=== PATIENT | female | born 1975 | race Caucasian/White ===

== ENCOUNTER 2016-09-05 12:44 | Emergency (ER) | payer OTHER ==
[2016-09-05] MEDS ORDERED: IBUPROFEN 600 MG TABLET PO ONE (13:06)
--- NOTE | 2016-09-05 13:07 | ER Document Report ---
ED Medical Screen (RME) - General Chief Complaint: Foot Injury Stated Complaint: ANKLE INJURY Time Seen by Provider: 09/05/16 13:06 Mode of Arrival: Wheelchair Information source: Patient Notes: This is a 41-year-old female that presents to the emergency room with predominant left ankle and foot swelling and pain after twisting her ankle. Patient does states she has got some right foot swelling and tenderness but not as bad as the left. She tripped at home TRAVEL OUTSIDE OF THE [place] IN LAST 30 DAYS: No - Related Data Allergies/Adverse Reactions: codeine phosphate [From Tylenol-Codeine] Allergy (Severe, Verified 08/11/15 11: 12) N&V promethazine HCl [From Phenergan] Allergy (Severe, Verified 08/11/15 11:12) Nausea & Vomiting acetaminophen [From Percocet] Adverse Reaction (Severe, Verified 08/11/15 11:12) N&V oxycodone HCl [From Percocet] Adverse Reaction (Verified 04/12/15 20:04) Past Medical History - Past Medical History Cardiac Medical History: Denies: Hx Atrial Fibrillation, Hx Congestive Heart Failure, Hx Coronary Artery Disease, Hx Heart Attack, Hx Hypercholesterolemia, Hx Hypertension, Hx Peripheral Vascular Disease, Hx Pulmonary Embolism, Hx Heart Murmur Pulmonary Medical History: Denies: Hx Asthma, Hx Bronchitis, Hx COPD, Hx Pneumonia, Hx Respiratory Failure, Hx Sleep Apnea, Hx Tuberculosis Neurological Medical History: Denies: Hx Cerebrovascular Accident, Hx Seizures Endocrine Medical History: Denies: Hx Graves' Disease, Hx Hyperthyroidism, Hx Hypothyroidism Renal/ Medical History: Denies: Hx End Stage Renal Disease, Hx Kidney Stones, Hx Ovarian Cysts, Hx Peritoneal Dialysis, Hx Pelvic Inflammatory Disease Malignancy Medical History: Denies: Hx Breast Cancer, Hx Cervical Cancer, Hx Leukemia, Hx Lung Cancer, Hx Ovarian Cancer GI Medical History: Denies: Hx Crohn's Disease, Hx Gastroesophageal Reflux Disease, Hx Hiatal Hernia, Hx Irritable Bowel, Hx Liver Failure, Hx Ulcer Musculoskeltal Medical History: Denies Hx Arthritis, Denies Hx Fibromyalgia, Denies Hx Multiple Sclerosis, Denies Hx Muscular Dystrophy Psychiatric Medical History: Denies: Hx Bipolar Disorder, Hx Dementia, Hx Depression, Hx Post Traumatic Stress Disorder, Hx Schizophrenia Traumatic Medical History: Denies: Hx Fractures Infectious Medical History: Denies: Hx HIV Past Surgical History: Reports: Hx Breast Surgery - reduction 1998, Hx Cholecystectomy, Hx Herniorrhaphy, Hx Tonsillectomy, Hx Tubal Ligation. Denies : Hx Appendectomy, Hx Bowel Surgery, Hx Section, Hx Colostomy, Hx Coronary Artery Bypass Graft, Hx Gastric Bypass Surgery, Hx Hysterectomy, Hx Mastectomy - BREAST REDUCTION 1997, Hx Pacemaker - Immunizations Hx Diphtheria, Pertussis, Tetanus Vaccination: Yes Physical Exam - Vital signs Vitals: Temp Pulse Resp BP Pulse Ox 98.4 F 121 H 18 148/100 H 97 09/05/16 13:00 09/05/16 13:00 09/05/16 13:00 09/05/16 13:00 09/05/16 13:00 Course - Vital Signs Vital signs: Temp Pulse Resp BP Pulse Ox 98.4 F 121 H 18 148/100 H 97 09/05/16 13:00 09/05/16 13:00 09/05/16 13:00 09/05/16 13:00 09/05/16 13:00
--- NOTE | 2016-09-05 13:43 | RADIOLOGY REPORT (SQ) ---
EXAM DESCRIPTION: ANKLE LEFT COMPLETE; FOOT LEFT COMPLETE COMPLETED DATE/TIME: 09/05/2016 1:32 pm REASON FOR STUDY: injury COMPARISON: None. NUMBER OF VIEWS: Three views. TECHNIQUE: AP, lateral, and oblique radiographic images acquired of the left ankle and left foot. LIMITATIONS: None. FINDINGS: MINERALIZATION: Normal. BONES: Corticated bone fragments lateral to the talus suggestive of chronic avulsion type injury. Wi th additional apparent acute fracture fragments involving the lateral aspect of the anterior calcanea l process as well as off of the tip of the lateral malleolus. JOINTS: No effusions. SOFT TISSUES: Lateral soft tissue swelling. OTHER: No other significant finding. IMPRESSION: APPARENT ACUTE ON CHRONIC AVULSION TYPE INJURY LATERAL ANKLE ABOVE. TECHNICAL DOCUMENTATION: JOB ID: [id number] [employer]- All Rights Reserved
--- NOTE | 2016-09-05 13:43 | RADIOLOGY REPORT (SQ) ---
EXAM DESCRIPTION: ANKLE LEFT COMPLETE; FOOT LEFT COMPLETE COMPLETED DATE/TIME: 09/05/2016 1:32 pm REASON FOR STUDY: injury COMPARISON: None. NUMBER OF VIEWS: Three views. TECHNIQUE: AP, lateral, and oblique radiographic images acquired of the left ankle and left foot. LIMITATIONS: None. FINDINGS: MINERALIZATION: Normal. BONES: Corticated bone fragments lateral to the talus suggestive of chronic avulsion type injury. Wi th additional apparent acute fracture fragments involving the lateral aspect of the anterior calcanea l process as well as off of the tip of the lateral malleolus. JOINTS: No effusions. SOFT TISSUES: Lateral soft tissue swelling. OTHER: No other significant finding. IMPRESSION: APPARENT ACUTE ON CHRONIC AVULSION TYPE INJURY LATERAL ANKLE ABOVE. TECHNICAL DOCUMENTATION: JOB ID: [id number] [employer]- All Rights Reserved
--- NOTE | 2016-09-05 13:44 | RADIOLOGY REPORT (SQ) ---
EXAM DESCRIPTION: FOOT RIGHT COMPLETE COMPLETED DATE/TIME: 09/05/2016 1:32 pm REASON FOR STUDY: injury COMPARISON: 07/26/2014 NUMBER OF VIEWS: Three views. TECHNIQUE: AP, lateral and oblique radiographic images acquired of the right foot. LIMITATIONS: None. FINDINGS: MINERALIZATION: Normal. BONES: No acute fracture or dislocation. No worrisome bone lesions. Stable degree of plantar calcan eal spurring. JOINTS: No effusions. SOFT TISSUES: No soft tissue swelling. No foreign body. OTHER: No other significant finding. IMPRESSION: NO RADIOGRAPHIC EVIDENCE OF ACUTE INJURY. NO SIGNIFICANT CHANGE FROM PRIOR STUDY. TECHNICAL DOCUMENTATION: JOB ID: [id number] [employer]- All Rights Reserved
--- NOTE | 2016-09-05 13:51 | ER Document Report ---
HPI - HPI Patient complains to provider of: stumbled on porch steps Onset: Just prior to arrival Onset/Duration: Sudden Quality of pain: Throbbing Pain Level: 5 Context: 41-year-old female stumbled on 4 steps injuring both feet and ankles at 12:30. Previous ankle injury at age 18 but she does not remember which one it was. The left hurts the most. She is able to bear weight on the right foot. Associated Symptoms: None Exacerbated by: Walking Relieved by: Denies Similar symptoms previously: Yes Recently seen / treated by doctor: No - ROS ROS below otherwise negative: Yes Systems Reviewed and Negative: Yes All other systems reviewed and negative - REPRODUCTIVE Reproductive: DENIES: : - DERM Skin Color: Normal Past Medical History - General Information source: Patient - Social History Smoking Status: Never Smoker Frequency of alcohol use: None Drug Abuse: None Lives with: Spouse/Significant other Family History: Reviewed & Not Pertinent - Medical History Medical History: Negative Past Surgical History: Reports: Hx Breast Surgery - reduction 1999, Hx Cholecystectomy, Hx Herniorrhaphy, Hx Tonsillectomy, Hx Tubal Ligation - Immunizations Hx Diphtheria, Pertussis, Tetanus Vaccination: Yes Hx Pneumococcal Vaccination: 01/14/06 Vertical Provider Document - CONSTITUTIONAL Agree With Documented VS: Yes Exam Limitations: No Limitations General Appearance: No Apparent Distress - INFECTION CONTROL TRAVEL OUTSIDE OF THE [place] IN LAST 30 DAYS: No - HEENT HEENT: Atraumatic, Normocephalic - NECK Neck: Supple - RESPIRATORY O2 Sat by Pulse Oximetry: 97 - MUSCULOSKELETAL/EXTREMETIES Musculoskeletal/Extremeties: Tender - Left lateral malleolus and lateral proximal foot. 2+ DP bilateral. Left knee full range of motion nontender. Neurovascular intact distal to the ankle. Right knee full range of motion nontender. Right ankle and foot no swelling or bony tenderness. Bilateral heel squeeze negative., Edema, Eccymosis - NEURO Level of Consciousness: Awake, Alert, Appropriate Motor/Sensory: No Motor Deficit, No Sensory Deficit - DERM Integumentary: Warm, Dry Course - Re-evaluation Re-evalutation: 09/05/16 14:[address] Romano the radiologist who interpreted the images and he states that the impression for the left ankle and left foot are complete as reported which shows apparent acute on chronic avulsion type injury lateral ankle. I confirmed that there were no other positive findings and this included the left foot read. right foot is negative. left acutre fx frragments involing the lateral aspect of the anterior calcaneal process as well as off of the tip of the lateral malleolus 09/05/16 15:01 - Vital Signs Vital signs: Temp Pulse Resp BP Pulse Ox 98.4 F 121 H 18 148/100 H 97 09/05/16 13:00 09/05/16 13:00 09/05/16 13:00 09/05/16 13:00 09/05/16 13:00 Procedures - Immobilization Left Ankle Time completed: 15:35 Pre-Proc Neuro Vasc Exam: Normal Immobilizer type: Posterior ankle Performed by: PCT Post-Proc Neuro Vasc Exam: Normal Alignment checked and good: Yes Notes: 09/06/16 08:29 right ankle stirrup splint applied by PCt as well alignment. Neurovascular intact., Discharge - Discharge Clinical Impression: Right foot sprain Qualifiers: Encounter type: initial encounter Qualified Code(s): S93.601A - Unspecified sprain of right foot, initial encounter Closed left ankle fracture Qualifiers: Encounter type: initial encounter Qualified Code(s): S82.892A - Other fracture of left lower leg, initial encounter for closed fracture Avulsion fracture of calcaneus Qualifiers: Encounter type: initial encounter Fracture type: closed Fracture alignment: nondisplaced Laterality: left Condition: Good Disposition: HOME, SELF-CARE Instructions: Splint Precautions ([facility]), Anti-Inflammatory Medication ([facility]), Use of Crutches ([facility]), Fracture Calcaneus ([facility]), Avulsion Fracture of the Ankle ([facility]) Additional Instructions: non weight bearing call the orthopedic doctor in the morning for appointment this week keep the splint on and elevate the left foot to er any concerns Please complete the patient satisfaction survey if you get one, and return it.. If you do not receive a survey, then you can go to the [facility] website, [email or web address] and place your comments about your very good care. Thank you very much. It was a pleasure being your medical provider today. Prescriptions: Ibuprofen [Motrin 800 mg Tablet] 800 mg PO Q8HP PRN #30 tablet PRN Reason: Forms: Return to Work Referrals: CRISTINO POWELL MD [Primary Care Provider] - Follow up as needed PA ALFONSO MD [ACTIVE STAFF] - 09/06/16 (call tomorrow for appointment this week)
[2016-09-05 15:13] VITALS: BP 140/88
== END 2016-09-05 15:13 | disposition home or self-care (01) ==
LOC: ER 12:44
PROC: 2W3RX1Z Immobilization of Left Lower Leg using Splint (ICD-10-PCS; principal; 2016-09-05)
PROC: 2W3QX1Z Immobilization of Right Lower Leg using Splint (ICD-10-PCS; 2016-09-05)
DX: S93.601A Unspecified sprain of right foot, initial encounter (principal); S82.892A Other fracture of left lower leg, initial encounter for closed fracture; S92.002A Unspecified fracture of left calcaneus, initial encounter for closed fracture; W10.9XXA Fall (on) (from) unspecified stairs and steps, initial encounter; Z90.49 Acquired absence of other specified parts of digestive tract; Z98.51 Tubal ligation status
CPT/HCPCS: 99283

== ENCOUNTER → 2017-12-24 | Outpatient (CLI) | payer OTHER ==
[2017-12-24 12:08] LABS: A TYPE INFLUENZA AG NEGATIVE (NEGATIVE); B INFLUENZA AG NEGATIVE (NEGATIVE)
== END ==
LOC: OD 11:17
PROVIDERS: ATTEND Nurse Practitioner Family
DX: R50.9 Fever, unspecified (principal)
CPT/HCPCS: 87804

== ENCOUNTER → 2018-04-20 | Outpatient (CLI) | payer OTHER ==
--- NOTE | 2018-04-20 08:32 | WOMENS IMAGING REPORT ---
EXAM DESCRIPTION: BILAT SCREENING MAMMO W/CAD COMPLETED DATE/TIME: 04/20/2018 7:42 am REASON FOR STUDY: Z12.31 ROUTINE BILATERAL [id number] ENCNTR SCREEN MAMMOGRAM FOR MALIGNANT NE OPLASM OF [place] COMPARISON: None. TECHNIQUE: Standard craniocaudal and mediolateral oblique views of each breast recorded using [employer] l acquisition. LIMITATIONS: None. FINDINGS: RIGHT BREAST MASSES: No suspicious masses. CALCIFICATIONS: No new or suspicious calcifications. ARCHITECTURAL DISTORTION: None. DEVELOPING DENSITY: Central posterior 9 cm deep to the nipple seen on the MLO view only. ASYMMETRY: None noted. OTHER: No other significant findings. LEFT BREAST MASSES: No suspicious masses. CALCIFICATIONS: No new or suspicious calcifications. ARCHITECTURAL DISTORTION: None. DEVELOPING DENSITY: None. ASYMMETRY: None noted. OTHER: No other significant findings. Read with the assistance of CAD. .[facility] - R2 Cenova Version 1.3 .[facility] Imaging - R2 Cenova Version 1.3 .[facility] Imaging - R2 Cenova Version 2.4 .[facility] - R2 Cenova Version 2.4 .[facility] - R2 Personal [employer] Version 9.2 IMPRESSION: Developing density right breast. BREAST DENSITY: b. There are scattered areas of fibroglandular density. BIRAD: 0 Incomplete: Needs Additional Imaging Evaluation and/or prior Mammograms for Comparison. RECOMMENDATION: RECOMMENDED FOLLOW-UP: True lateral, exaggerated CC, cone compression views and pote ntial ultrasound of the right breast. The patient will be contacted for additional imaging. COMMENT: The patient has been notified of the results by letter per SA requirements. Additional no tification policies are in place for contacting patient with suspicious or incomplete findings. Quality ID #[id number]: The [employer] recommends an annual screening mammogram for women aged 40 years or over. This facility utilizes a reminder system to ensure that all patients receive reminder letters, and/or direct phone calls for appointments. This includes reminders for routine scr eening mammograms, diagnostic mammograms, or other Breast Imaging Interventions when appropriate. Th is patient will be placed in the appropriate reminder system. The [employer] (ACR) has developed recommendations for screening MRI of the breast s in certain patient populations, to be used in conjunction with mammography. Breast MRI surveillanc e may be appropriate for women with more than 20% lifetime risk of developing breast cancer as deter mined by genetic testing, significant family history of the disease, or history of mantle radiation f or Hodgkins Disease. ACR Practice Guidelines 2008. TECHNICAL DOCUMENTATION: FINDING NUMBER: (1) ASSESSMENT: (1) JOB ID: [id number] [employer]- All Rights Reserved Reading location - IP/workstation name: [email or web address]
== END ==
LOC: WI 07:01
PROVIDERS: ATTEND Physician Assistant
DX: Z12.31 Encounter for screening mammogram for malignant neoplasm of breast (principal); R92.2 Inconclusive mammogram
CPT/HCPCS: 77067

== ENCOUNTER → 2018-05-04 | Outpatient (CLI) | payer OTHER ==
--- NOTE | 2018-05-04 16:51 | WOMENS IMAGING REPORT ---
EXAM DESCRIPTION: RIGHT DIAGNOSTIC MAMMO W/CAD; U/S BREAST UNILAT LIMITED COMPLETED DATE/TIME: 05/04/2018 8:08 am; 05/04/2018 9:15 am REASON FOR STUDY: R92.2 INCONCLUSIVE MAMMOGRAM; RT BREAST R92.2 R92.2 INCONCLUSIVE MAMMOGRAM COMPARISON: 04/20/2018 TECHNIQUE: CONE COMPRESSION craniocaudal and mediolateral oblique images of the breast recorded with digital acquisition. Additional whole breast 90 mediolateral view and exaggerated craniocaudad view. Ultrasound of the right breast laterally was performed, 9 o'clock position about 10 to 15 cm from the nipple. LIMITATIONS: None. FINDINGS: BREAST LATERALITY: Right MASSES: No suspicious masses. CALCIFICATIONS: No new or suspicious calcifications. ARCHITECTURAL DISTORTION: None. DEVELOPING DENSITY: None. ASYMMETRY: None noted. OTHER: Postsurgical changes from breast reduction Read with the assistance of CAD. .[facility] - R2 Cenova Version 1.3 .[facility] Imaging - R2 Cenova Version 2.1 .[facility] Imaging - R2 Cenova Version 2.4 .[facility] - R2 Cenova Version 2.4 .[facility] - R2 [employer] Counter Person Version 9.2 Right breast ultrasound: Ultrasound of the lateral right breast was performed. No discrete cystic or solid lesions. No worri some acoustic absorption. No focal findings. IMPRESSION: No mammographic or sonographic evidence for malignancy right breast BREAST DENSITY: b. There are scattered areas of fibroglandular density. BIRAD: 1 Negative. RECOMMENDATION: RECOMMENDED FOLLOW UP: Please continue yearly bilateral mammographic screening in [facility] 2019 SPECIFIC INTERVENTION/IMAGING/CONSULTATION RECOMMENDED:No additional intervention/ imaging/consultati on needed at this time. COMMUNICATION:Patient notified by letter COMMENT: The patient has been notified of the results by letter per SA requirements. Additional no tification policies are in place for contacting patient with suspicious or incomplete findings. Quality ID #[id number]: The [employer] recommends an annual screening mammogram for women aged 40 years or over. This facility utilizes a reminder system to ensure that all patients receive reminder letters, and/or direct phone calls for appointments. This includes reminders for routine scr eening mammograms, diagnostic mammograms, or other Breast Imaging Interventions when appropriate. Th is patient will be placed in the appropriate reminder system. The [employer] (ACR) has developed recommendations for screening MRI of the breast s in certain patient populations, to be used in conjunction with mammography. Breast MRI surveillanc e may be appropriate for women with more than 20% lifetime risk of developing breast cancer as deter mined by genetic testing, significant family history of the disease, or history of mantle radiation f or Hodgkins Disease. ACR Practice Guidelines 2008. TECHNICAL DOCUMENTATION: FINDING NUMBER: (1) ASSESSMENT: (1) JOB ID: [id number] [employer]- All Rights Reserved Reading location - IP/workstation name: [email or web address]
--- NOTE | 2018-05-04 16:51 | WOMENS IMAGING REPORT ---
EXAM DESCRIPTION: RIGHT DIAGNOSTIC MAMMO W/CAD; U/S BREAST UNILAT LIMITED COMPLETED DATE/TIME: 05/04/2018 8:08 am; 05/04/2018 9:15 am REASON FOR STUDY: R92.2 INCONCLUSIVE MAMMOGRAM; RT BREAST R92.2 R92.2 INCONCLUSIVE MAMMOGRAM COMPARISON: 04/20/2018 TECHNIQUE: CONE COMPRESSION craniocaudal and mediolateral oblique images of the breast recorded with digital acquisition. Additional whole breast 90 mediolateral view and exaggerated craniocaudad view. Ultrasound of the right breast laterally was performed, 9 o'clock position about 10 to 15 cm from the nipple. LIMITATIONS: None. FINDINGS: BREAST LATERALITY: Right MASSES: No suspicious masses. CALCIFICATIONS: No new or suspicious calcifications. ARCHITECTURAL DISTORTION: None. DEVELOPING DENSITY: None. ASYMMETRY: None noted. OTHER: Postsurgical changes from breast reduction Read with the assistance of CAD. .[facility] Cenova Version 1.3 .[facility] Imaging - R2 Cenova Version 2.1 .[facility] Imaging - R2 Cenova Version 2.4 .[facility] - R2 Cenova Version 2.4 .[facility] - R2 Quality Assurance Nurse Version 9.2 Right breast ultrasound: Ultrasound of the lateral right breast was performed. No discrete cystic or solid lesions. No worri some acoustic absorption. No focal findings. IMPRESSION: No mammographic or sonographic evidence for malignancy right breast BREAST DENSITY: b. There are scattered areas of fibroglandular density. BIRAD: 1 Negative. RECOMMENDATION: RECOMMENDED FOLLOW UP: Please continue yearly bilateral mammographic screening in [facility] 2019 SPECIFIC INTERVENTION/IMAGING/CONSULTATION RECOMMENDED:No additional intervention/ imaging/consultati on needed at this time. COMMUNICATION:Patient notified by letter COMMENT: The patient has been notified of the results by letter per SA requirements. Additional no tification policies are in place for contacting patient with suspicious or incomplete findings. Quality ID #[id number]: The [employer] recommends an annual screening mammogram for women aged 40 years or over. This facility utilizes a reminder system to ensure that all patients receive reminder letters, and/or direct phone calls for appointments. This includes reminders for routine scr eening mammograms, diagnostic mammograms, or other Breast Imaging Interventions when appropriate. Th is patient will be placed in the appropriate reminder system. The [employer] (ACR) has developed recommendations for screening MRI of the breast s in certain patient populations, to be used in conjunction with mammography. Breast MRI surveillanc e may be appropriate for women with more than 20% lifetime risk of developing breast cancer as deter mined by genetic testing, significant family history of the disease, or history of mantle radiation f or Hodgkins Disease. ACR Practice Guidelines 2008. TECHNICAL DOCUMENTATION: FINDING NUMBER: (1) ASSESSMENT: (1) JOB ID: [id number] [employer]- All Rights Reserved Reading location - IP/workstation name: [email or web address]
== END ==
LOC: WI 07:41
PROVIDERS: ATTEND Physician Assistant
DX: R92.2 Inconclusive mammogram (principal)
CPT/HCPCS: 76642

== ENCOUNTER 2018-08-03 13:28 | Emergency (ER) | payer OTHER ==
--- NOTE | 2018-08-03 14:04 | ER Document Report ---
ED Medical Screen (RME) - General Chief Complaint: Palpitations Stated Complaint: COLD SWEATS TINGLING Time Seen by Provider: 08/03/18 13:52 Primary Care Provider: MARIO MAIER PA-C [Primary Care Provider] - Follow up as needed Mode of Arrival: Wheelchair Information source: Patient Notes: Patient presents to the emergency department with chest tightness palpitations. Patient reports that she took a diet pill phena-lean, yesterday and today now feels shaky palpitations and chest tightness. Drank a diet Pepsi and has only had approximately 500 sheridan today. Father has extensive cardiac disease. Patient reports she has lost 90 pounds over the past 10 months and was trying to get rid of the last few pounds. I have greeted and performed a rapid initial assessment of this patient. A comprehensive ED assessment and evaluation of the patient, analysis of test results and completion of the medical decision making process will be conducted by additional ED providers. Dictation of this chart was performed using voice recognition software; therefore, there may be some unintended grammatical errors. TRAVEL OUTSIDE OF THE [place] IN LAST 30 DAYS: No - Related Data Allergies/Adverse Reactions: codeine phosphate [From Tylenol-Codeine] Allergy (Severe, Verified 08/03/18 13:32) N&V promethazine HCl [From Phenergan] Allergy (Severe, Verified 08/03/18 13:32) Nausea & Vomiting acetaminophen [From Percocet] Adverse Reaction (Severe, Verified 08/03/18 13:32) N&V oxycodone HCl [From Percocet] Adverse Reaction (Verified 08/03/18 13:32) Past Medical History - Past Medical History Cardiac Medical History: Denies: Hx Atrial Fibrillation, Hx Congestive Heart Failure, Hx Coronary Artery Disease, Hx Heart Attack, Hx Hypercholesterolemia, Hx Hypertension, Hx Peripheral Vascular Disease, Hx Pulmonary Embolism, Hx Heart Murmur Pulmonary Medical History: Denies: Hx Asthma, Hx Bronchitis, Hx COPD, Hx Pneumonia, Hx Respiratory Failure, Hx Sleep Apnea, Hx Tuberculosis Neurological Medical History: Denies: Hx Cerebrovascular Accident, Hx Seizures Endocrine Medical History: Denies: Hx Graves' Disease, Hx Hyperthyroidism, Hx Hypothyroidism Renal/ Medical History: Denies: Hx End Stage Renal Disease, Hx Kidney Stones, Hx Ovarian Cysts, Hx Peritoneal Dialysis, Hx Pelvic Inflammatory Disease Malignancy Medical History: Denies: Hx Breast Cancer, Hx Cervical Cancer, Hx Leukemia, Hx Lung Cancer, Hx Ovarian Cancer GI Medical History: Denies: Hx Crohn's Disease, Hx Gastroesophageal Reflux Disease, Hx Hiatal Hernia, Hx Irritable Bowel, Hx Liver Failure, Hx Pancreatitis, Hx Ulcer Musculoskeltal Medical History: Denies Hx Arthritis, Denies Hx Fibromyalgia, Denies Hx Multiple Sclerosis, Denies Hx Muscular Dystrophy, Denies Hx Systemic Lupus Erythematosus Psychiatric Medical History: Denies: Hx Bipolar Disorder, Hx Dementia, Hx Depression, Hx Post Traumatic Stress Disorder, Hx Schizophrenia Traumatic Medical History: Denies: Hx Fractures Infectious Medical History: Denies: Hx HIV Past Surgical History: Reports: Hx Breast Surgery - reduction 1998, Hx Cholecystectomy, Hx Herniorrhaphy, Hx Tonsillectomy, Hx Tubal Ligation. Denies: Hx Appendectomy, Hx Bowel Surgery, Hx Section, Hx Colostomy, Hx Coronary Artery Bypass Graft, Hx Gastric Bypass Surgery, Hx Hysterectomy, Hx Mastectomy - BREAST REDUCTION 1997, Hx Pacemaker - Immunizations Hx Diphtheria, Pertussis, Tetanus Vaccination: Yes Physical Exam - Vital signs Vitals: Temp Pulse Resp BP Pulse Ox 98.3 F 119 H 18 135/76 H 100 08/03/18 13:44 08/03/18 13:44 08/03/18 13:44 08/03/18 13:44 08/03/18 13:44 Course - Vital Signs Vital signs: Temp Pulse Resp BP Pulse Ox 98.3 F 119 H 18 135/76 H 100 08/03/18 13:44 08/03/18 13:44 08/03/18 13:44 08/03/18 13:44 08/03/18 13:44 Doctor's Discharge - Discharge Referrals: MARIO MAIER PA-C [Primary Care Provider] - Follow up as needed
[2018-08-03 14:28] LABS: ABSOLUTE BASOPHILS # (AUTO) 0.1 10^3/uL (0.0-0.2); ABSOLUTE EOSINOPHILS # (AUTO) 0.1 10^3/uL (0.0-0.6); ABSOLUTE LYMPHOCYTES (AUTO) 2.3 10^3/uL (0.5-4.7); ABSOLUTE MONOCYTES (AUTO) 0.5 10^3/uL (0.1-1.4); ABSOLUTE NEUT (AUTO) 5.5 10^3/uL (1.7-8.2); BASOPHILS % (AUTO) 0.7 % (0-2); EOSINOPHILS % (AUTO) 1.1 % (0-6); HEMATOCRIT 44.2 % (36.0-47.0); HEMOGLOBIN 15.5 g/dL (12.0-15.5); LYMPHOCYTES % (AUTO) 27.3 % (13-45); MEAN CORPUSCULAR HEMOGLOBIN 29.8 pg (27.0-33.4); MEAN CORPUSCULAR HGB CONC 35.1 g/dL (32.0-36.0); MEAN CORPUSCULAR VOLUME 85 fl (80-97); MONOCYTES % (AUTO) 5.6 % (3-13); PLATELET COUNT 294 10^3/uL (150-450); RED CELL DISTRIBUTION WIDTH 13.2 % (11.5-14.0); SEGMENTED NEUTROPHILS % (AUTO) 65.3 % (42-78); TOTAL CELLS COUNTED % (AUTO) 100 %; WHITE BLOOD COUNT 8.4 10^3/uL (4.0-10.5)
[2018-08-03 14:43] LABS: APPEARANCE,URINE SLIGHTLY-CLOUDY; BILIRUBIN,URINE NEGATIVE (NEGATIVE); COLOR,URINE YELLOW; GLUCOSE, URINE NEGATIVE (NEGATIVE); KETONES,URINE TRACE mg/dL (NEGATIVE); LEUKOCYTE ESTERASE,URINE SMALL (NEGATIVE); NITRITE,URINE NEGATIVE (NEGATIVE); PROTEIN,URINE NEGATIVE (NEGATIVE); URINE SPECIFIC GRAVITY 1.009; UROBILINOGEN,URINE NEGATIVE mg/dL (<2.0)
--- NOTE | 2018-08-03 14:54 | RADIOLOGY REPORT (SQ) ---
EXAM DESCRIPTION: CHEST 2 VIEWS COMPLETED DATE/TIME: 08/03/2018 2:28 pm REASON FOR STUDY: chest tightness COMPARISON: 01/21/2016, 08/13/2015 EXAM PARAMETERS: NUMBER OF VIEWS: two views TECHNIQUE: Digital Frontal and Lateral radiographic views of the chest acquired. RADIATION DOSE: NA LIMITATIONS: none FINDINGS: LUNGS AND PLEURA: No opacities, masses or pneumothorax. No pleural effusion. MEDIASTINUM AND HILAR STRUCTURES: No masses or contour abnormalities. HEART AND VASCULAR STRUCTURES: Heart normal size. No evidence for failure. BONES: No acute findings. HARDWARE: None in the chest. OTHER: No other significant finding. IMPRESSION: NO ACUTE RADIOGRAPHIC FINDING IN THE CHEST. TECHNICAL DOCUMENTATION: JOB ID: [id number] [employer]- All Rights Reserved Reading location - IP/workstation name: [email or web address]
[2018-08-03 14:56] LABS: ALANINE AMINOTRANSFERASE 25 U/L (9-52); ALBUMIN 5.1 g/dL (3.5-5.0); ALKALINE PHOSPHATASE 71 U/L (38-126); ANION GAP 17 (5-19); ASPARTATE AMINO TRANSFERASE 20 U/L (14-36); BILIRUBIN,DIRECT 0.3 mg/dL (0.0-0.4); BILIRUBIN,TOTAL 1.1 mg/dL (0.2-1.3); BLOOD UREA NITROGEN 12 mg/dL (7-20); CALCIUM 10.9 mg/dL (8.4-10.2); CARBON DIOXIDE 22 mmol/L (22-30); CHLORIDE 100 mmol/L (98-107); CREATINE KINASE 20 U/L (30-135); GLUCOSE 141 mg/dL (75-110); POTASSIUM 3.9 mmol/L (3.6-5.0); SODIUM 139.4 mmol/L (137-145)
[2018-08-03 14:58] LABS: TOTAL PROTEIN 7.9 g/dL (6.3-8.2)
--- NOTE | 2018-08-03 16:47 | ER Document Report ---
ED General - General Chief Complaint: Palpitations Stated Complaint: COLD SWEATS TINGLING Time Seen by Provider: 08/03/18 13:52 Primary Care Provider: MARIO MAIER PA-C [Primary Care Provider] - Follow up in 1 week Mode of Arrival: Wheelchair Information source: Patient Notes: Patient presents to the emergency department with chest tightness palpitations. Patient reports that she took a diet pill phena-lean, yesterday and today now feels shaky palpitations and chest tightness. Drank a diet Pepsi and has only had approximately 500 sheridan today. Father has extensive cardiac disease. Patient reports she has lost 90 pounds over the past 10 months and was trying to get rid of the last few pounds. no other c/o such as fever/vomiting/diarrhea. No complaints of shortness of breath. No complaintes of pain with void. TRAVEL OUTSIDE OF THE [place] IN LAST 30 DAYS: No - HPI Onset: Just prior to arrival Onset/Duration: Sudden Quality of pain: No pain Pain Level: Denies Associated symptoms: None Exacerbated by: Denies Relieved by: Denies Similar symptoms previously: No Recently seen / treated by doctor: No - Related Data Allergies/Adverse Reactions: codeine phosphate [From Tylenol-Codeine] Allergy (Severe, Verified 08/03/18 13:32) N&V promethazine HCl [From Phenergan] Allergy (Severe, Verified 08/03/18 13:32) Nausea & Vomiting acetaminophen [From Percocet] Adverse Reaction (Severe, Verified 08/03/18 13:32) N&V oxycodone HCl [From Percocet] Adverse Reaction (Verified 08/03/18 13:32) Past Medical History - General Information source: Patient - Social History Smoking Status: Unknown if Ever Smoked Chew tobacco use (# tins/day): No Frequency of alcohol use: None Drug Abuse: None Lives with: Family Family History: Reviewed & Not Pertinent Patient has suicidal ideation: No Patient has homicidal ideation: No - Past Medical History Cardiac Medical History: Denies: Hx Atrial Fibrillation, Hx Congestive Heart Failure, Hx Coronary Artery Disease, Hx Heart Attack, Hx Hypercholesterolemia, Hx Hypertension, Hx Peripheral Vascular Disease, Hx Pulmonary Embolism, Hx Heart Murmur Pulmonary Medical History: Denies: Hx Asthma, Hx Bronchitis, Hx COPD, Hx Pneumonia, Hx Respiratory Failure, Hx Sleep Apnea, Hx Tuberculosis Neurological Medical History: Denies: Hx Cerebrovascular Accident, Hx Seizures Endocrine Medical History: Denies: Hx Graves' Disease, Hx Hyperthyroidism, Hx Hypothyroidism Renal/ Medical History: Denies: Hx End Stage Renal Disease, Hx Kidney Stones, Hx Ovarian Cysts, Hx Peritoneal Dialysis, Hx Pelvic Inflammatory Disease Malignancy Medical History: Denies: Hx Breast Cancer, Hx Cervical Cancer, Hx Leukemia, Hx Lung Cancer, Hx Ovarian Cancer GI Medical History: Denies: Hx Crohn's Disease, Hx Gastroesophageal Reflux Disease, Hx Hiatal Hernia, Hx Irritable Bowel, Hx Liver Failure, Hx Pancreatitis, Hx Ulcer Musculoskeletal Medical History: Denies Hx Arthritis, Denies Hx Fibromyalgia, Denies Hx Multiple Sclerosis, Denies Hx Muscular Dystrophy, Denies Hx Systemic Lupus Erythematosus Psychiatric Medical History: Denies: Hx Bipolar Disorder, Hx Dementia, Hx Depression, Hx Post Traumatic Stress Disorder, Hx Schizophrenia Traumatic Medical History: Denies: Hx Fractures Infectious Medical History: Denies: Hx HIV Past Surgical History: Reports: Hx Breast Surgery - reduction 1998, Hx Cholecystectomy, Hx Herniorrhaphy, Hx Tonsillectomy, Hx Tubal Ligation. Denies: Hx Appendectomy, Hx Bowel Surgery, Hx Section, Hx Colostomy, Hx Coronary Artery Bypass Graft, Hx Gastric Bypass Surgery, Hx Hysterectomy, Hx Mastectomy - BREAST REDUCTION 1997, Hx Pacemaker - Immunizations Hx Diphtheria, Pertussis, Tetanus Vaccination: Yes Hx Pneumococcal Vaccination: 01/14/06 Review of Systems - Review of Systems Notes: Review HPI for review of systems., All other systems negative Physical Exam - Vital signs Vitals: Temp Pulse Resp BP Pulse Ox 98.3 F 119 H 18 135/76 H 100 08/03/18 13:44 08/03/18 13:44 08/03/18 13:44 08/03/18 13:44 08/03/18 13:44 - General General appearance: Appears well, Alert, Anxious In distress: None - HEENT Head: Normocephalic Eyes: Normal Conjunctiva: Normal Extraocular movements intact: Yes Neck: Normal, Supple - Respiratory Respiratory status: No respiratory distress Chest status: Nontender Breath sounds: Normal Chest palpation: Normal - Cardiovascular Rhythm: Regular Heart sounds: Normal auscultation Murmur: No - Abdominal Inspection: Normal Distension: No distension Tenderness: Nontender - Extremities General upper extremity: Normal ROM General lower extremity: Normal ROM - Neurological Neuro grossly intact: Yes Cognition: Normal Orientation: AAOx4 Yina Coma Scale Eye Opening: Spontaneous [place] Coma Scale Verbal: Oriented Yina Coma Scale Motor: Obeys Commands [place] Coma Scale Total: 15 Speech: Normal Cranial nerves: Normal Cerebellar coordination: Normal - Psychological Associated symptoms: Normal affect, Normal mood - Skin Skin Temperature: Warm Skin Moisture: Dry Skin Color: Normal Course - Re-evaluation Re-evalutation: 08/03/18 Labs unremarkable. Negative troponin. Chest x-ray negative I was called to the patient's room and she reports she feels much better ready to go home. She reports she will never take that diet pill again EKG is reviewed and interpreted by me. EKG shows sinus tachy No change from previous EKG. No ST segment elevation or depression. No ischemic T wave inversions. GA interval, QRS duration, QT intervals are within normal range. The patient has atypical chest pain. The patient's chest pain is not suggestive of pulmonary embolus, cardiac ischemia, aortic dissection or other serious etiology. Given the extremely low risk for these diagnosis, further testing and evaluation for these possibilities does not appear to be indicated at this time. The patient has been instructed to return if the symptoms worsen or change in any way. Patient was instructed by attention to her symptoms do not take diet pills follow-up with her primary care provider she verbalized understanding to all instructions. Dictation of this chart was performed using voice recognition software; theref ore, there may be some unintended grammatical errors. 08/03/18 20:03 08/03/18 20:05 08/03/18 20:07 - Vital Signs Vital signs: Temp Pulse Resp BP Pulse Ox 97.8 F 90 16 119/75 100 08/03/18 16:55 08/03/18 16:55 08/03/18 16:55 08/03/18 16:55 08/03/18 16:55 - Laboratory Result Diagrams: 08/03/18 14:10 08/03/18 14:10 Laboratory results interpreted by me: 08/03/18 08/03/18 14:10 14:10 Glucose 141 H Calcium 10.9 H Creatine Kinase 20 L Albumin 5.1 H Urine Ketones TRACE H Urine Blood MODERATE H Ur Leukocyte Esterase SMALL H - Diagnostic Test Radiology reviewed: Image reviewed, Reports reviewed - EXAM DESCRIPTION: CHEST 2 VIEWS COMPLETED DATE/TIME: 08/03/2018 2:28 pm REASON FOR STUDY: chest tightness COMPARISON: 01/21/2016, 08/13/2015 EXAM PARAMETERS: NUMBER OF VIEWS: two views TECHNIQUE: Digital Frontal and Lateral radiographic views of the chest acquired. RADIATION DOSE: NA LIMITATIONS: none FINDINGS: LUNGS AND PLEURA: No opacities, masses or pneumothorax. No pleural effusion. MEDIASTINUM AND HILAR STRUCTURES: No masses or contour abnormalities. HEART AND VASCULAR STRUCTURES: Heart normal size. No evidence for failure. BONES: No acute findings. HARDWARE: None in the chest. OTHER: No other significant finding. IMPRESSION: NO ACUTE RADIOGRAPHIC FINDING IN THE CHEST. TECHNICAL DOCUMENTATION: JOB ID: [id number] [employer]- All Rights Reserved Discharge - Discharge Clinical Impression: Palpitations Condition: Stable Disposition: HOME, SELF-CARE Instructions: Palpitations (Irregular or Rapid Heartrate) ([facility]) Additional Instructions: *You have been evaluated for palpitations *Discontinue your diet medication *Follow up with a primary care provider within one week for recheck *Return to ED for worsening condition, changes, needs, concerns, return of palpi tations * Monitor your blood pressure. Your blood pressure was elevated today. This may be because you were anxious, in pain or because you need medication. It is important to follow up with your primary care provider for full evaluation. Forms: Elevated Blood Pressure Referrals: MARIO MAIER PA-C [Primary Care Provider] - Follow up in 1 week
[2018-08-03 16:56] VITALS: BP 119/75
--- NOTE | 2018-08-03 19:36 | EKG REPORT ---
SEVERITY:- OTHERWISE NORMAL ECG - SINUS TACHYCARDIA : Confirmed by: Ronda Avila MD 03-Aug-2018 19:35:16
== END 2018-08-03 16:56 | disposition home or self-care (01) ==
LOC: ER 13:28
DX: R00.2 Palpitations (principal); R07.89 Other chest pain; Z88.5 Allergy status to narcotic agent; Z88.8 Allergy status to other drugs, medicaments and biological substances; Z82.49 Family history of ischemic heart disease and other diseases of the circulatory system
CPT/HCPCS: 36415; 71046; 80053; 81001; 81025; 82550; 84484; 85025; 93005; 93010; 99285

== ENCOUNTER → 2019-04-24 | Outpatient (CLI) | payer OTHER ==
--- NOTE | 2019-04-24 17:52 | WOMENS IMAGING REPORT ---
EXAM DESCRIPTION: BILAT SCREENING MAMMO W/CAD COMPLETED DATE/TIME: 04/24/2019 7:20 am REASON FOR STUDY: ROUTINE [id number] [id number] SCREEN MAMMOGRAM FOR MALIGNANT NEOPLASM OF STEWART COMPARISON: 2018 EXAM PARAMETERS: Standard craniocaudal and mediolateral oblique views of each breast recorded using digital acquisition. Read with the assistance of CAD. [facility] - [facility] Version 9.2 LIMITATIONS: None. FINDINGS: Findings present which are benign by mammographic criteria. No suspicious masses, calcifi cations or architectural distortion. Pertinent benign findings: Postsurgical changes from bilateral breast lift Benign mammographic findings may include one or more of the following: Smooth masses, popcorn/rim/co arse calcifications, asymmetries, post-procedure changes, and lesions with long-standing stability. IMPRESSION: BENIGN MAMMOGRAPHIC FINDINGS. BIRADS 2 BREAST DENSITY: b. There are scattered areas of fibroglandular density. BIRAD: ASSESSMENT: 2 BENIGN FINDING(S) RECOMMENDATION: ROUTINE SCREENING Please continue yearly bilateral screening mammography/tomosynthesis in April 2020 COMMENT: The patient has been notified of the results by letter per MQSA requirements. Additional no tification policies are in place for contacting patient with suspicious or incomplete findings. Quality ID #[id number]: The [employer] recommends an annual screening mammogram for women aged 40 years or over. This facility utilizes a reminder system to ensure that all patients receive reminder letters, and/or direct phone calls for appointments. This includes reminders for routine scr eening mammograms, diagnostic mammograms, or other Breast Imaging Interventions when appropriate. Th is patient will be placed in the appropriate reminder system. TECHNICAL DOCUMENTATION: FINDING NUMBER: (1) ASSESSMENT: (1) JOB ID: [id number] [employer]- All Rights Reserved Reading location - IP/workstation name: [email or web address]
== END ==
LOC: WI 07:00
PROVIDERS: ATTEND Nurse Practitioner Family
DX: Z12.31 Encounter for screening mammogram for malignant neoplasm of breast (principal)
CPT/HCPCS: 77067

== ENCOUNTER → 2019-11-20 | Outpatient (CLI) | payer OTHER ==
--- NOTE | 2019-11-20 17:38 | EKG REPORT ---
SEVERITY:- NORMAL ECG - SINUS RHYTHM : Confirmed by: Ronda Avila MD 20-Nov-2019 17:37:04
== END ==
LOC: OD 10:28
PROVIDERS: ATTEND Physician Assistant
DX: R00.2 Palpitations (principal)
CPT/HCPCS: 93005; 93010